=== PATIENT | female | born 1960 | race Caucasian/White ===

== ENCOUNTER 2018-11-25 08:06 | Emergency (ER) | payer MEDICAID ==
--- NOTE | 2018-11-25 08:31 | ED ---
Skin Complaint - HPI Summary HPI Summary: Patient is a 58 y/o F presenting to ED with complaints of a "scabies rash". She states that she has been experiencing Sx intermittently over the past year. Patient notes rashes at back of her head and neck, under her breasts, and at her pelvic and pubic area, mostly left side. She describes areas as pruritic. Patient claims that she has been treating Sx with emuaid and tea tree oil. She claims that a week ago, she had onset of "full-blown scabies" which she has "never had before". She notes that this morning, she applied permethrin cream to her pubic area and immediately after she experienced a tingling/"flapping" sensation at this area. She wiped off the cream and reports that this Sx resolved. PMHx of HTN reported, patient is on Atenolol. She has yet to see [facility]. On triage, pain is rated 3/10, permethrin cream is noted to aggravate Sx, nothing is noted to alleviate Sx. Home medications, allergies, and nurse's note reviewed. - History of Current Complaint Chief Complaint: EDRashSkinAbscess Time Seen by Provider: 11/25/18 08:13 Stated Complaint: SCABIES RASH Hx Obtained From: Patient Onset/Duration: Started Hours Ago - this morning, applied permethrin cream to her pelvic area and immediately after she experienced a tingling/"flapping" sensation at this area., Started Weeks Ago - scabies intermittently for past year, "full-blown scabies" last week, Still Present Skin Exposure Onset/Duration: Hours Ago - this morning, applied permethrin cream to her pelvic area and immediately after she experienced a tingling/ "flapping" sensation at this area., Weeks Ago - scabies intermittently for past year, "full-blown scabies" last week Timing: Intermittent Current Severity: Mild - 3/10 Pain Intensity: 3 Pain Scale Used: 0-10 Numeric - 3/10 Skin Location: Neck - back of neck, Other: - back of head, pelvic area, pubic area Character: Pruritus Aggravating Symptom(s): Other: - Permethrin cream Alleviating Symptom(s): Nothing Associated Signs & Symptoms: Negative - Allergy/Home Medications Allergies/Adverse Reactions: Allergies Allergy/AdvReac Type Severity Reaction Status Date / Time codeine Allergy Itching Verified 11/25/18 08:12 Home Medications: Home Medications Atenolol 25 mg PO DAILY 11/25/18 [History Confirmed 11/25/18] PMH/Surg Hx/FS Hx/Imm Hx Sensory History: Denies: Hx Legally Blind, Hx Deafness Opthamlomology History: Denies: Hx Legally Blind EENT History: Denies: Hx Deafness Infectious Disease History: No Infectious Disease History: Denies: Traveled Outside the [place] in Last 30 Days - Family History Known Family History: Negative: Blood Disorder - Social History Alcohol Use: Rare Substance Use Type: Reports: None Smoking Status (MU): Former Smoker Review of Systems Negative: Fever - on vitals, temp is 97.7 F Positive: Other - rashes at back of her head and neck, under her breasts, and at her pelvic and pubic area, mostly left side. She describes areas as pruritic ; applied permethrin cream to her pubic area and immediately after she experienced a tingling/"flapping" sensation at this area. All Other Systems Reviewed And Are Negative: Yes Physical Exam - Summary Physical Exam Summary: Appearance: Well appearing, no pain distress Skin: warm, dry, reflects adequate perfusion; excoriated lesions under the breasts, redness. Dermatitis at pubic area, redness at back of neck, nothing in webspaces of hands and feet Head/face: normal Eyes: EOMI, NICOLE ENT: mucous membranes moist Neck: supple, non-tender Respiratory: CTA, breath sounds present Cardiovascular: RRR, pulses symmetrical Abdomen: non-tender, soft Bowel Sounds: present Musculoskeletal: normal, strength/ROM intact Neuro: normal, sensory motor intact, A&Ox3 Triage Information Reviewed: Yes Vital Signs On Initial Exam: Initial Vitals Temp Pulse Resp BP Pulse Ox 97.7 F 70 16 167/89 98 11/25/18 08:09 11/25/18 08:09 11/25/18 08:09 11/25/18 08:09 11/25/18 08:09 Vital Signs Reviewed: Yes Diagnostics - Vital Signs Vital Signs Temp Pulse Resp BP Pulse Ox 11/25/18 08:09 97.7 F 70 16 167/89 98 - Laboratory Lab Statement: Any lab studies that have been ordered have been reviewed, and results considered in the medical decision making process. Course/Dx - Course Course Of Treatment: Nurse's notes reviewed. Patient presents with nonspecific dermatitis that may be scabies. Does not involve the web spaces of the hands. She does have photos that show burrows in the past prior to treatments. I prescribed her permethrin lotion and ointment. She was referred to dermatology for formal diagnosis by biopsy in the persistent/recurring symptoms. - Differential Diagnoses - Skin Complaint Differential Diagnoses: Other - Dermatitis, scabies, neurotic excoriation - Diagnoses Provider Diagnoses: Dermatitis, Scabies Discharge - Sign-Out/Discharge Documenting (check all that apply): Patient Departure - discharge - Discharge Plan Condition: Stable Disposition: HOME Prescriptions: hydrOXYzine HCL TAB* [Atarax 25 MG TAB*] 25 mg PO QID PRN #30 tab PRN Reason: Itching Permethrin 1% LOTION* [Nix 1% LOTION*] 1 applic TOPICAL SEE INSTRUCTIONS #1 btl Permethrin 5% CREAM* 1 applic TOPICAL SEE INSTRUCTIONS #1 tube Patient Education Materials: Scabies (ED) Referrals: Tatiana Lynn [Medical Doctor] - Additional Instructions: Call the [facility] today to schedule appointment for appointment and likely biopsy. Return if worse or other concerns. Follow up with her family doctor if unable to get into the [facility] in a timely fashion. - Billing Disposition and Condition Condition: STABLE Disposition: Home - Attestation Statements Document Initiated by Vilma: Yes Documenting Scribe: KENJI STRICKLAND Provider For Whom Vilma is Documenting (Include Credential): PAULINE BERNSTEIN MD Scribe Attestation: IKENJI, scribed for PAULINE BERNSTEIN MD on 11/25/18 at 1039. Scribe Documentation Reviewed: Yes Provider Attestation: The documentation as recorded by the KENJI coreas accurately reflects the service I personally performed and the decisions made by me, PAULINE BERNSTEIN MD Status of Scribe Document: Viewed
[2018-11-25 09:09] VITALS: BP 146/81
== END 2018-11-25 09:02 | disposition home or self-care (01) ==
LOC: ED 08:06
DX: B86 Scabies (principal); L30.9 Dermatitis, unspecified
CPT/HCPCS: 99282